=== PATIENT | male | born 1965 | race Hispanic/Latino ===

== ENCOUNTER 2023-09-04 06:59 | Day surgery (SDC) | payer OTHER ==
[2023-09-02 14:16] LABS: BASOPHILS # (AUTO) 0.04 K/uL (0.00-0.20); BASOPHILS % (AUTO) 0.7 % (0.0-5.0); EOSINOPHILS # (AUTO) 0.19 K/uL (0.00-0.70); EOSINOPHILS % (AUTO) 3.1 % (0.0-8.0); HEMATOCRIT 41.7 % (42-54); IMMATURE GRANULOCYTE ABSOLUTE 0.01 K/uL (0-1); LYMPHOCYTES # (AUTO) 1.8 K/uL (1.0-4.8); LYMPHOCYTES % (AUTO) 29.3 % (21.0-51.0); MEAN CORPUSCULAR HEMOGLOBIN 31.7 pg (27.0-33.0); MEAN CORPUSCULAR HGB CONC 35.5 g/dL (32.0-36.0); MEAN CORPUSCULAR VOLUME 89.3 fL (79-99); MONOCYTES # (AUTO) 0.4 K/uL (0.1-1.0); NEUTROPHILS # (AUTO) 3.7 K/uL (1.8-7.7); NEUTROPHILS % (AUTO) 60.7 % (40.0-77.0); PLATELET COUNT (AUTO) 192 K/uL (130-400); RED BLOOD CELL COUNT(AUTO) 4.67 MIL/uL (4.50-6.20); RED CELL DISTRIBUTION WIDTH 12.1 % (11.0-15.5)
[2023-09-02 14:57] VITALS: BP 127/75; PULSE 68; RESP 18
[2023-09-04] VITALS (20 sets, daily range): BP systolic 113–147; BP diastolic 62–83; PULSE 50–83; RESP 10–16
[~2023-09-04] VITALS: Ht 175.3 cm; Wt 85.5 kg
[~2023-09-04 06:59] MED LIST: ATOR10 PO; BUSP5TAB3 PO; CALC-866 PO; CYAN-118 PO; FINA5TAB41 PO; FISH400C2 PO; GABA-529 PO; LISI20TA24 PO; MULT-1285 PO; PANT40TA54 PO; TAMS-1 PO
[2023-09-04] MEDS ORDERED: LEVOFLOXACIN 500 MG/D5W 100 ML 100 ML ONE (07:24)
[2023-09-04 08:17] LABS: CREATININE 1.3 mg/dL (0.5-1.5); POTASSIUM 4.5 mmol/L (3.5-5.1)
[2023-09-04] MEDS ORDERED: LIDOCAINE PF 100MG/5ML (2%) SYRINGE 5ML ONE ×2 (09:37→09:41)
[2023-09-04] MEDS ORDERED: DEXAMETHASONE SOD PHOSPHATE 10MG/ML 1ML VIAL ONE (09:37)
[2023-09-04] MEDS ORDERED: MIDAZOLAM HCL 1 MG/ML 2ML VIAL ONE (09:39)
[2023-09-04] MEDS ORDERED: NEOSTIGMINE METHYLSULFATE 1MG/ML IV ONE (09:40)
[2023-09-04] MEDS ORDERED: FENTANYL CITRATE PF 50 MCG/1 ML 2ML VIAL ONE (09:40)
[2023-09-04] MEDS ORDERED: ROCURONIUM BROMIDE 10MG/1ML 5ML VL ONE (09:40)
[2023-09-04] MEDS ORDERED: PROPOFOL 10 MG/ML 20ML VIAL IV ONE (09:40)
[2023-09-04] MEDS ORDERED: GLYCOPYRROLATE 0.2 MG/ML 5 ML VIAL ONE (09:40)
[2023-09-04] MEDS: LACTATED RINGERS 1000ML 1,000 ML IV ONE (10:19)
[2023-09-04] MEDS ORDERED: MEPERIDINE-PF 25 MG/ML SYG ONE (10:20)
[2023-09-04] MEDS ORDERED: SUGAMMADEX SODIUM 200 MG/2 ML VIAL IV ONE (10:23)
[2023-09-04] MEDS: ONDANSETRON 4MG INJ ONE (11:36)
[2023-09-04] MEDS: MEPERIDINE-PF 25 MG/ML SYG ONE ×2 (11:37→11:38)
[2023-09-04] MEDS: ACETAMINOPHEN 1,000 MG/100 ML VIAL IV ONE (11:38)
[2023-09-04] MEDS: PHENAZOPYRIDINE HCL 200 MG TABLET ONE (12:40)
[2023-09-06 13:00] VITALS: BP 120/81; PULSE 55; RESP 16
== END 2023-09-04 13:20 | disposition home or self-care (01) ==
LOC: DAH 06:59
PROVIDERS: ATTEND Urology
DX: N40.1 Benign prostatic hyperplasia with lower urinary tract symptoms (principal); N13.8 Other obstructive and reflux uropathy; R39.14 Feeling of incomplete bladder emptying; N32.89 Other specified disorders of bladder; I10 Essential (primary) hypertension; K21.9 Gastro-esophageal reflux disease without esophagitis; Z79.01 Long term (current) use of anticoagulants; Z88.0 Allergy status to penicillin; Z88.8 Allergy status to other drugs, medicaments and biological substances; Z79.899 Other long term (current) drug therapy
CPT/HCPCS: 85025; 36415 ×2; 52648; 80048; A6260; A4663; J7120 ×2; A4354; J3010; J1100; J1956; J3490 ×2; J2001 ×2; J2250; J2704; J2405; J2710; J2175 ×3; A4358; A4215; A4223; A4222; A4221; A4510; A4600